=== PATIENT | female | born 1985 | race Caucasian/White ===

== ENCOUNTER 2016-10-31 16:32 | Emergency (ER) | payer OTHER ==
[~2016-10-31] VITALS: Ht 167.6 cm; Wt 117.9 kg
[~2016-10-31 16:32] MED LIST: ALPRAZOLAM0.5 MG PO; C-500500 MG PO; CEPHALEXIN500 M1 PO; DICLOFENAC SODI75 MG PO; FLUOXETINE HCL20 MG PO; FLUTICASONE PRO16 GM NAS; IBUPROFEN600 MG PO; LOVASTATIN10 MG PO; MARLISSA1 EACH PO; METFORMIN HCL750 MG PO; MULTI-DAY VITA1 EACH PO; NORCO 5-325 TA1 EACH PO; TRAMADOL HCL50 MG PO; VENTOLIN HFA18 GM INH; ZYRTEC10 MG PO
[2016-10-31] MEDS ORDERED: ANUSOL-HC30 GM PR (17:00)
== END 2016-10-31 17:05 | disposition home or self-care (01) ==
LOC: ED 16:32
DX: K64.5 Perianal venous thrombosis (principal); J45.909 Unspecified asthma, uncomplicated; Z88.1 Allergy status to other antibiotic agents; Z79.899 Other long term (current) drug therapy
CPT/HCPCS: 99283

== ENCOUNTER 2017-04-14 07:00 | Day surgery (SDC) | payer OTHER ==
[~2017-04-14] VITALS: Ht 167.6 cm; Wt 117.9 kg
[~2017-04-14 07:00] MED LIST changes: +ANUSOL-HC30 GM PR; +PHENDIMETRAZINE35 MG PO
--- NOTE | 2017-04-14 09:19 | NUR ---
ASSIST TO BR AND BACK TO BED CONTS TO WAIT IV PATENT DENIES NEEDS.
--- NOTE | 2017-04-14 11:15 | NUR ---
04/14/17 1115 Susan Vera 1104 PATIENT ARRIVES TO PACU SLEEPING, BUT OPENS EYES TO VERBAL STIMULI, DENIES PAIN NAUSEA, BACK TO SLEEP. RESP EVEN AND UNLABORED, MASK AT 6 LITERS. 1110 PATIENT FEELING ANXIOUS WITH MASK ON, REMOVED, ROOM AIR AT 96%, ALSO C/O DRY THROAT. DENIES PAIN OR NAUSEA.
--- NOTE | 2017-04-14 11:48 | NUR ---
ATE COUPLE CRACKERS THEN HYDROCODONE.
--- NOTE | 2017-04-14 12:24 | NUR ---
STARTING TO FEEL BETTER. DRINKING WATER ATE CRACKERS AND SHERBET ICE CR.
[2017-04-14] MEDS ORDERED: NORCO 5-325 TA1 EACH PO (12:41)
[2017-04-14] MEDS ORDERED: IBUPROFEN800 MG PO (12:42)
--- NOTE | 2017-05-04 09:56 | OR ---
[facility] [address] [place], [place] [address] Signed DATE OF OPERATION: 04/14/2017 SURGEON: Matt Kemp MD Patient of Dr. Kemp. PREOPERATIVE DIAGNOSES: Pelvic pain, dyspareunia. POSTOPERATIVE DIAGNOSES: Pelvic pain, dyspareunia. PROCEDURE: Diagnostic laparoscopy. BOWSTRING MAKER: Dr. Nathan. ANESTHESIA: General. ESTIMATED BLOOD LOSS: 5 mL. SPECIMEN: None. DRAINS: None. FINDINGS: Normal cervix. Normal size and shape uterus without any evidence of endometriosis or adhesions. The anterior cul-de-sac was free of any endometriosis or adhesions. Posterior cul-de-sac was free of any endometriosis or adhesions. The left tube was normal in length and normal-appearing fimbriated end. The left ovary was normal in size and shape without any evidence of endometriosis or adhesions. The left pelvic sidewall was also free of any endometriosis or adhesions. The right tube was normal length and normal-appearing fimbriated end and the right ovary is normal size and shape without any evidence of endometriosis or adhesions. The right pelvic sidewall was also free of any endometriosis or adhesions. The appendix also looked normal. The rest of the pelvis Electronically Signed By: MATT KEMP MD 05/04/17 0956 PATIENT NAME: OWEN PATRICIA OPERATIVE REPORT DATE OF : 81 REPORT #: [id number] PHYSICIAN: MATT KEMP MD PCP: TIO GASPAR REPORT IS CONFIDENTIAL AND NOT TO BE RELEASED WITHOUT AUTHORIZATION [facility] [address] [place], [place] [address] Signed was free of any masses or adhesions. DESCRIPTION OF PROCEDURE: The patient was brought to the operating room and placed in supine position. After adequate general anesthesia was obtained, she was placed in a dorsal lithotomy position, and prepped and draped in usual sterile fashion. A Sorenson catheter was placed in the bladder. A weighted speculum was placed in the vagina and the anterior lip of the cervix was grasped with an Allis clamp. Uterine cavity was sounded to 9 cm and the cervix partially dilated up to a #7-[place]izen [place] dilator. The H[place]ka clamp was then carefully introduced through the endocervical canal and attached to the anterior lip of the cervix. Allis clamp and weighted speculum were then removed. Attention was then drawn to the abdomen. A small infraumbilical skin incision was made with a scalpel after injecting the area with 0.5% plain Marcaine. The subcutaneous tissue was dissected with Metzenbaum scissors and the fascia identified and grasped with two hemostats, elevated and nicked with Metzenbaum scissors, extended in transverse fashion using Metzenbaum scissors. Retention stitches of 0 Vicryl were placed above and below the incision and then the peritoneum opened with finger dissection. The S retractor was inserted into the incision and spun 360 degree fashion showing no resistance verifying good placement in the abdominal cavity. The Reece cannula and sleeve entered the abdomen along the S retractor, which was then removed. The sleeve was attached and was held in place with the retention stitches. Trocar removed and the laparoscope with video attachment entered the abdomen under direct visualization. Carbon dioxide was used as a distending medium. A small skin incision was made in the left lower quadrant after transilluminating the area to avoid any vessels. The skin was injected with 0.5% Marcaine. A small skin incision was made with a scalpel. A bladed 5-mm trocar and sleeve were then entered the abdomen under direct visualization. The trocar was removed and blunt grasper inserted. The above findings were noted. No evidence of endometriosis was seen. No other reason noted for the pain even after careful examination of the entire pelvis. At this point, it was decided to terminate the procedure, so all instruments were removed. The gas allowed to escape and the final sleeve removed. The fascia was closed using a running stitch of 0 Vicryl suture. The two retention stitches were tied together for further support of the fascia. The two skin incisions were closed using subcuticular stitches of 4-0 Vicryl. The clamp and Sorenson catheter were removed. The patient tolerated the procedure well, went to recovery room in good condition. The sponge, needle, and instrument counts were correct at the end of procedure. Electronically Signed By: MATT KEMP MD 05/04/17 0956 PATIENT NAME: OWEN PATRICIA OPERATIVE REPORT DATE OF : 81 REPORT #: [id number] PHYSICIAN: MATT KEMP MD PCP: TIO GASPAR REPORT IS CONFIDENTIAL AND NOT TO BE RELEASED WITHOUT AUTHORIZATION [address] [address] Signed Matt Kemp MD MJB/MODL /[id number] cc: JENA Rizzo Copies: TIO GASPAR ~ Electronically Signed By: MATT KEMP MD 05/04/17 0956 PATIENT NAME: OWEN PATRICIA OPERATIVE REPORT DATE OF : 81 REPORT #: [id number] PHYSICIAN: MATT KEMP MD PCP: TIO GASPAR REPORT IS CONFIDENTIAL AND NOT TO BE RELEASED WITHOUT AUTHORIZATION
== END 2017-04-14 13:40 | disposition home or self-care (01) ==
LOC: OPS 07:00 → DS 07:00 → OPS 09:00 → DS 09:30 → OPS 09:30
PROVIDERS: General Practice
PROC: 0WJG4ZZ Inspection of Peritoneal Cavity, Percutaneous Endoscopic Approach (ICD-10-PCS; 2017-04-14)
PROC: 0WJJ4ZZ Inspection of Pelvic Cavity, Percutaneous Endoscopic Approach (ICD-10-PCS; principal; 2017-04-14 09:00)
DX: N94.10 Unspecified dyspareunia (principal); E11.9 Type 2 diabetes mellitus without complications; F32.9 Major depressive disorder, single episode, unspecified; E78.1 Pure hyperglyceridemia; J45.909 Unspecified asthma, uncomplicated; Z98.890 Other specified postprocedural states; Z88.1 Allergy status to other antibiotic agents; Z79.899 Other long term (current) drug therapy; Z79.84 Long term (current) use of oral hypoglycemic drugs
CPT/HCPCS: 00840; 36415; 84703; 85025; J0131; J0330; J1100; J1885; J2250; J2405; J2704; J3010; J7120